=== PATIENT | female | born 1975 | race Caucasian/White ===

== ENCOUNTER → 2021-09-12 | Outpatient (CLI) | payer OTHER ==
[~2021-09-12] MED LIST: IBUP-2077 PO; PREN1TAB80 PO
== END | disposition home or self-care (01) ==
LOC: OIH 11:07
PROVIDERS: ATTEND Nurse Practitioner Adult Health
DX: Z13.6 Encounter for screening for cardiovascular disorders (principal)
CPT/HCPCS: 75571

== ENCOUNTER → 2025-07-15 | Outpatient (CLI) | payer BC ==
--- NOTE | 2025-07-20 09:49 | HMCIMG ---
EXAMINATION: NONCONTRAST MR EXAMINATION OF THE RIGHT KNEE. CLINICAL HISTORY: Right knee pain. COMPARISON: None provided. TECHNIQUE: Multiplanar, multisequence MR imaging of the right knee. FINDINGS: In the medial compartment, the meniscus is intact. There is no focal chondrosis or subchondral bone marrow edema. In the lateral compartment, the meniscus demonstrates a complex degenerative global tear with small posterior horn remnant. There is diffuse chondral loss involving entire weight bearing and nonweight bearing articular surfaces with small subchondral cystic changes and scalloping of the lateral tibial plateau, possibly secondary to prior subchondral fracture. In the patellofemoral compartment, there is mild to intermediate grade medial trochlear chondral softening and fissuring. There is mild diffuse medial patella chondral softening with small marginal osteophytes. There is no subchondral bone marrow edema. The anterior and posterior cruciate ligaments are intact. Iliotibial band is intact. The fibular collateral ligament, biceps femoris tendon, conjoined tendon, and popliteus tendon demonstrate susceptibility artifacts, likely related to prior lateral ligamentous complex repair, limiting evaluation of adjacent soft tissues. The medial collateral ligament is intact. The extensor mechanism and patellar retinaculum are intact. There is no knee joint effusion. There is no bone marrow signal abnormality seen to suggest fracture, avascular necrosis, or osteomyelitis. The musculature surrounding the knee demonstrate normal bulk and signal. 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 Mild to intermediate grade chondral softening and fissuring in medial trochlea and medial patella. Susceptibility artifacts in lateral ligamentous complex, likely related to prior repair. /[place]
== END | disposition home or self-care (01) ==
LOC: RAH 13:15
PROVIDERS: ATTEND Nurse Practitioner Adult Health
DX: S83.281A Other tear of lateral meniscus, current injury, right knee, initial encounter (principal); M25.561 Pain in right knee; M17.11 Unilateral primary osteoarthritis, right knee; M25.761 Osteophyte, right knee; X58.XXXA Exposure to other specified factors, initial encounter; Y93.89 Activity, other specified; Y92.89 Other specified places as the place of occurrence of the external cause; Y99.8 Other external cause status
CPT/HCPCS: 73721